=== PATIENT | female | born 1965 | race Caucasian/White ===

== ENCOUNTER 2019-12-22 11:08 | Outpatient (CLI) | payer BC ==
[2019-12-22] MEDS ORDERED: MONT10TA6 PO (12:13)
[2019-12-22] MEDS ORDERED: ALBU8.5H8 INH (12:13)
[2019-12-22] MEDS ORDERED: Juice plus PO ×2 (12:13)
[2019-12-22] MEDS ORDERED: TRIA10.8 NAS (12:13)
[2019-12-22] MEDS ORDERED: [UNRECOGNIZED DRUG - OTHER] PO (12:13)
[2019-12-22] MEDS ORDERED: ZINC PO (12:13)
[2019-12-22] MEDS ORDERED: MULT-717 PO (12:13)
[2019-12-22] MEDS ORDERED: L. A1CAP3 PO (12:13)
[2019-12-22] MEDS ORDERED: KETO10DR5 EACHEYE (12:13)
[2019-12-22] MEDS ORDERED: LEVO5TAB29 PO (12:13)
[2019-12-22] MEDS ORDERED: MAG PO (12:13)
[2019-12-22] MEDS ORDERED: GLUC1TAB53 PO (12:13)
== END 2019-12-22 23:59 | disposition home or self-care (01) ==
LOC: STAR 11:08
PROVIDERS: ATTEND Orthopaedic Surgery
DX: Z02.9 Encounter for administrative examinations, unspecified (principal)

== ENCOUNTER 2019-12-25 11:14 | Inpatient (IN) | payer BC ==
[~2019-12-25] VITALS: Ht 165.1 cm; Wt 70.0 kg
[~2019-12-25 11:14] MED LIST: ALBU8.5H8 INH; FENTANYL PF 250 MCG/5ML ONE; GLUC1TAB53 PO; Juice plus PO; KETO10DR5 EACHEYE; L. A1CAP3 PO; LEVO5TAB29 PO; MAG PO; MIDAZOLAM 1 MG/ML, 2ML ONE; MONT10TA6 PO; MULT-717 PO; TRIA10.8 NAS; ZINC PO; [UNRECOGNIZED DRUG - OTHER] PO
[2019-12-25] MEDS ORDERED: LACTATED RINGERS 1,000 ML IV SCH (12:18)
[2019-12-25] MEDS ORDERED: CHLORHEXIDINE 15 ML UDC MM ONE (12:19)
[2019-12-25] MEDS ORDERED: ACETAMINOPHEN 500 MG TABLET PO ONE (12:30)
[2019-12-25] MEDS ORDERED: TRANEXAMIC ACID 100 MG/ML, 10ML ONE (12:36)
[2019-12-25] MEDS ORDERED: CLINDAMYCIN 150 MG/ML, 6ML ONE (13:29)
[2019-12-25] MEDS ORDERED: ROPIvacaine/PF 0.2%, 100ML 550 ML in BAG 1 EACH INJ ONE (14:00)
[2019-12-25] MEDS ORDERED: EPHEDRINE 50 MG/ML, 1ML ONE (14:14)
[2019-12-25] MEDS ORDERED: OXYcodone 5 MG/5 ML ORAL.SOL UDC PO PRN (14:30)
[2019-12-25] MEDS ORDERED: ONDANSETRON 2MG/ML, 2ML IVPush PRN (14:30)
[2019-12-25] MEDS ORDERED: FENTANYL PF 100 MCG/2ML IV PRN (14:30)
[2019-12-25] MEDS ORDERED: ALBUTEROL SULFATE 2.5 MG/3 ML NPPB PRN (14:30)
[2019-12-25] MEDS ORDERED: HYDROmorphone 1 MG/ML, 1ML INJ IVPush PRN (14:30)
[2019-12-25] MEDS ORDERED: PROMETHAZINE 25 MG SUPP PR PRN (14:30)
[2019-12-25] MEDS ORDERED: LORazepam 2 MG/ML, 1ML IVPush PRN (14:30)
[2019-12-25] MEDS ORDERED: PROMETHAZINE 25 MG/ML, 1ML IVPush PRN (14:30)
[2019-12-25] MEDS ORDERED: FENTANYL PF 100 MCG/2ML ONE (15:35)
[2019-12-25] MEDS ORDERED: DEXAMETHASONE 4 MG/ML, 1ML ONE (15:59)
[2019-12-25] MEDS ORDERED: NEOSTIGMINE 1 MG/ML, 10ML ONE (15:59)
[2019-12-25] MEDS ORDERED: PROPOFOL 10 MG/ML, 20ML ONE (15:59)
[2019-12-25] MEDS ORDERED: ROPIvacaine/PF 0.5%, 30 ML ONE (15:59)
[2019-12-25] MEDS ORDERED: ROCURONIUM 10MG/ML,5ML ONE (15:59)
[2019-12-25] MEDS ORDERED: SUCCINYLCHOLINE 20 MG/ML, 10ML ONE (15:59)
[2019-12-25] MEDS ORDERED: CEFAZOLIN 1,000 MG ONE (15:59)
[2019-12-25] MEDS ORDERED: GLYCOPYRROLATE 0.2MG/1ML, 5ML ONE (15:59)
[2019-12-25] MEDS ORDERED: ONDANSETRON 2MG/ML, 2ML ONE (15:59)
[2019-12-25] MEDS ORDERED: BUPIVACAINE/PF 0.25% ONE (15:59)
== END 2019-12-25 18:11 | disposition home or self-care (01) | DRG 470 ==
LOC: ORIP 11:42
PROVIDERS: ADMIT Orthopaedic Surgery; ATTEND Orthopaedic Surgery
PROC: 0QUG07Z Supplement Right Tibia with Autologous Tissue Substitute, Open Approach (ICD-10-PCS; 2019-12-25)
PROC: 0JRQ07Z Replacement of Right Foot Subcutaneous Tissue and Fascia with Autologous Tissue Substitute, Open Approach (ICD-10-PCS; 2019-12-25)
PROC: 0QSB04Z Reposition Right Lower Femur with Internal Fixation Device, Open Approach (ICD-10-PCS; 2019-12-25)
PROC: 0SRC0JZ Replacement of Right Knee Joint with Synthetic Substitute, Open Approach (ICD-10-PCS; principal; 2019-12-25 13:45)
DX: M19.071 Primary osteoarthritis, right ankle and foot (principal); Z20.828 Contact with and (suspected) exposure to other viral communicable diseases
CPT/HCPCS: 73600; 76000; S0077; 87635; J0690; J1100; J2250; J2405; J2704; J2710; J2795; J3010; J3490; J0330